=== PATIENT | male | born 1970 | race Caucasian/White ===

== ENCOUNTER 2017-09-21 17:16 | Emergency (ER) | payer OTHER ==
[~2017-09-21] VITALS: Ht 182.9 cm; Wt 108.2 kg
[2017-09-21 17:23] VITALS: TEMP 36.8; Ht 182.9 cm; Wt 108.2 kg
[2017-09-21] MEDS ORDERED: KETOROLAC TROMETHAMINE 60 MG/2 ML VIAL IM STA (17:52)
[2017-09-21] MEDS ORDERED: ASPI81TA28 PO (17:55)
[2017-09-21] MEDS ORDERED: AMLO-110 PO (17:55)
[2017-09-21] MEDS ORDERED: METF-384 PO (17:55)
[2017-09-21] MEDS ORDERED: OXYCODONE IR HOME PACK PO STA (18:27)
[2017-09-21] MEDS ORDERED: FLEXERIL HOME PACK 10 MG VIAL PO STA (18:27)
[2017-09-21] MEDS ORDERED: OXYC1TAB3 PO (18:31)
[2017-09-21] MEDS ORDERED: CYCL5TAB PO (18:31)
--- NOTE | 2017-09-21 18:32 | EMERGENCY ROOM VISIT NOTE ---
History First contact with patient: 17:26 Chief Complaint: SHOULDER PAIN Stated Complaint: PAIN IN SHOULDER,NECK AND HAND - History of Present Illness The patient is a 47 year old male who presents to the Emergency Room via private vehicle with complaints of "pain in shoulder, neck and hand". The patient states earlier today between 215 and 2:20 PM he was unlocking a door with his right hand and pulling the handle with his left. The handle slipped causing his left arm to create a jerking-like sensation. A few minutes later he then developed pain in his back medial to that of the scapula extending down into his left arm with tingling extending into his fingers. He rates the overall pain is a 7/10. He denies any chest pain, shortness of breath, previous injury. No trauma to the region. No weakness. Review of Systems A complete 6-point Review of Systems was discussed with the patient, with pertinent positives and negatives listed in the History of Present Illness. All remaining Review of Systems questions can be considered negative unless otherwise specified. Past Medical/Surgical History Noncontributory Family History Noncontributory Social History Smoking Status: Never Smoker Social History: Patient is employed and lives locally. Current/Historical Medications Scheduled Amlodipine (Norvasc), 5 MG PO DAILY Aspirin (Aspirin Ec), 81 MG PO DAILY Metformin Hcl (Glucophage), 1,000 MG PO BID Scheduled PRN Cyclobenzaprine Hcl (Flexeril), 1 TAB PO TID PRN for Muscle Spasms Oxycodone Ir (Roxicodone Ir), 1-2 TAB PO Q4H PRN for Pain Allergies Coded Allergies: No Known Allergies (Unverified , 09/21/17) Physical Exam Vital Signs Date Time Temp Pulse Resp B/P (MAP) Pulse Ox O2 Delivery O2 Flow Rate FiO2 09/21/17 18:45 93 20 122/82 96 09/21/17 17:23 36.8 101 20 116/80 95 Room Air Physical Exam VITAL SIGNS - Vital signs and nursing notes were reviewed. Stable. GENERAL -47-year-old male appearing his stated age who is in no acute distress. Communicates well with provider and answers questions appropriately. SKIN - Without rashes. No meningeal or petechial rash. The skin overlying the left upper extremity is unremarkable. HEAD - NC/AT. EYES -Sclera anicteric. EARS - No deformities of external structures noted on gross examination bilaterally. NOSE - Midline and without cyanosis. No epistaxis or purulent drainage noted. MOUTH/OROPHARYNX - Without perioral cyanosis. NECK - Neck with FROM. Supple to palpation. No lymphadenopathy noted. No nuchal rigidity. No C-spine tenderness. When the patient extends the neck it does re-create tenderness just medial to that of the left scapular region. No C -spine paraspinous musculature tenderness. EXTREMITIES - No clubbing or peripheral cyanosis. Left upper extremity elicits full range of motion. No tenderness to palpation. The only reproducible tenderness is that when the patient extends the neck re-creates tenderness in the left trapezius muscle. Also reproducing pain upon palpation is noted overlying the left trapezius muscle excellent left bicipital reflex. He is neurovascularly intact in this region. +5/5 strength noted in UE/LE bilaterally. Medical Decision & Procedures Medications Administered Medications (Trade) Dose Ordered Sig/Sonja Route Start Time Stop Time Status Last Admin Dose Admin Ketorolac Tromethamine (Toradol Inj) 60 mg NOW STAT IM 09/21/17 17:52 09/21/17 17:53 DC 09/21/17 18:08 60 MG Oxycodone HCl (Roxicodone Immediate Rel 5MG Home Pack) 1 homepack UD STAT PO 09/21/17 18:27 09/21/17 18:30 DC 09/21/17 18:36 1 HOMEPACK Cyclobenzaprine HCl (FLEXERIL 10MG Home Pack) 1 homepack UD STAT PO 09/21/17 18:27 09/21/17 18:30 DC 09/21/17 18:36 1 HOMEPACK Medical Decision Patient was seen and evaluated as above in room D3. Review was performed of nursing notes and vital signs. After obtaining a thorough history and physical examination the above work up was performed. He presents to us today with a tingling sensation going down the left arm without weakness as well as pain in the trapezius muscle region. I suspect he likely strained the trapezius muscle given his mechanism of injury. No evidence of C-spine injury. There is no C- spine tenderness, or neurovascular deficit. No indication for imaging at this time. There has been no trauma. He did request something here for pain but notes he would like to be able to drive. Toradol is reasonable option. He notes he does have diabetes and is also on antihypertensives however I do believe a one-time dose of this is reasonable and he notes he has good kidney function. I will treat the strain with muscle relaxers. He is concerned about managing pain therefore he will be given a short prescription of oxycodone. No red flags in the pens of any drug monitoring system. A thorough discussion was had regarding worrisome things to watch out for this medication. He is to follow-up with Worker's Comp./orthopedics. He was thoroughly educated upon importance of returning particularly if he develops weakness in the left arm, neck pain, or any new/concerning symptoms. The patient was educated upon management, had questions answered prior to discharge, and was discharged home in good condition. In the evaluation and treatment of this patient, the following differential diagnoses were considered: Shoulder Contusion, Shoulder Fracture, Shoulder Dislocation, Thoracic Outlet Syndrome, Adhesive Capsulitis, Rotator Cuff Tear, Proximal Clavicle Head Fracture, Apical Pneumonia, Pneumothorax, Hemothorax, or TB. Impression Primary Impression: Trapezius muscle strain Departure Information Dispostion Home / Self-Care Condition GOOD Prescriptions Cyclobenzaprine Hcl (FLEXERIL) 5 Mg Tab 1 TAB PO TID Y for Muscle Spasms for 5 Days, #15 TAB Prov: Cash Choe PA-C 09/21/17 Oxycodone Ir (Roxicodone Ir) 5 Mg Tab 1-2 TAB PO Q4H Y for Pain, #15 TAB For Initial Treatment Prov: Cash Choe PA-C 09/21/17 Referrals No Doctor, Assigned (PCP) Eris Lawson MD Patient Instructions [facility] Additional Instructions You have been treated in the Emergency Department for Shoulder Pain, arm pain/ back pain. You have been prescribed oxy ir to be used for pain control. This is a narcotic medication. You cannot drive or consume alcohol while on this medicine. This medicine should only be used for pain that cannot be controlled with over-the- counter pain medicines. You have been prescribed Flexeril 5mg (cyclobenzaprine) 1-2 tabs orally, three times per day. Do NOT exceed 30 mg (6 tabs) per day. Take your first dose at bedtime as it can make you drowsy. Always take all medications as prescribed. The pills were sent home with were 10 mg please only take 1 of these. For pain control, you can use the following [id number] medicines (if >12 yo): - Regular strength (325mg/tab) Tylenol (acetaminophen) 2 tabs every 4-6 hours as needed. Do not exceed 12 tablets in a 24 hour period. Avoid taking more than 3 grams (3000 mg) of Tylenol per day. This includes any other sources of acetaminophen you may take on a regular basis. - Regular strength (200 mg/tab) Advil (ibuprofen) 1-2 tabs every 4-6 hours as needed. Do not exceed a dose of 3200 mg per day. If this is a recent injury (<24 hrs), ice can be applied to the area of pain for the first 3 days to help decrease pain and inflammation. You have been provided the number for an Orthopaedic Surgeon. You should call this number as soon as possible to establish a follow-up visit from today's Emergency Department visit. Please also follow-up with the approved Worker's Compensation individual. Keep the shoulder brace/sling in place until evaluated by Orthopedics. Continue to perform range of motion exercises several times per day to help prevent the development of a "frozen shoulder". Return to the Emergency Department if your current symptoms worsen despite treatment course outlined above, or if you develop any of the following symptoms : intractable pain despite aforementioned treatment course or new onset of numbness or tingling of the arm. If you start to develop weakness in the left arm, or numbness please return. Please return with any new/concerning symptoms
[2017-09-21 18:45] VITALS: BP 122/82; PULSE 93; O2SAT 96
== END 2017-09-21 18:45 | disposition home or self-care (01) ==
LOC: C.EDB 17:18 → C.EDD 18:45
DX: S46.812A Strain of other muscles, fascia and tendons at shoulder and upper arm level, left arm, initial encounter (principal); X50.9XXA Other and unspecified overexertion or strenuous movements or postures, initial encounter; Y93.89 Activity, other specified; Y99.8 Other external cause status; E11.9 Type 2 diabetes mellitus without complications; Z79.82 Long term (current) use of aspirin; Z79.84 Long term (current) use of oral hypoglycemic drugs